=== PATIENT | female | born 1945 | race Caucasian/White ===

== ENCOUNTER 2017-04-28 09:36 | Observation (INO) | payer MEDICARE ==
[~2017-04-28] VITALS: Ht 172.7 cm; Wt 114.4 kg
[~2017-04-28 09:36] MED LIST: CLON0.5T3 PO; DIGO250T PO; GLIP5TAB10 PO; LEVO250T25 PO; METO200T3 PO; PARO20TA3 PO; SITA100T PO; WARF5TAB7 PO
[2017-04-28] MEDS ORDERED: CONTRAST GIVEN MC PRN (10:30)
[2017-04-28] MEDS ORDERED: fentaNYL PF VIAL 100 MCG/2 ML VIAL IV ONE (10:30)
[2017-04-28] MEDS ORDERED: IOHEXOL 300 MG/ML 75 ML VIAL IV ONE (10:30)
--- NOTE | 2017-04-28 10:37 | PHYS DOC ---
Past Medical History Past Medical History: A-Fib, Anxiety, Cancer, Depression, Diabetes-Type II, Hypertension Additional Past Medical Histor: Breast Ca Past Surgical History: Pacemaker Additional Past Surgical Histo: L Mastectomy Alcohol Use: None Drug Use: None Adult General Chief Complaint Chief Complaint: NAUSEA/VOMITING/DIARRHA HPI HPI Patient is a 71 year old M who presents with abdominal pain since 7 AM. Patient states she will go 7 this morning with generalized abdominal pain with nausea/vomiting/diarrhea. Patient denies any fevers. Patient denies any chest pain or shortness of breath. Patient denies any previous surgeries on the abdomen. Patient has no other complaints. Patient was unable to eat breakfast this morning. Review of Systems Review of Systems GEN: Denies fevers, chills, sweats HEENT: Denies blurred vision, sore throat CV: Denies chest pain RESP: Denies shortness of air, cough GI: n/v/d with abd pain NEURO: Denies confusion, dizziness MSK: Denies weakness, joint pain/swelling Current Medications Current Medications Current Medications Medications (Trade) Dose Ordered Sig/Cecy Start Time Stop Time Status Last Admin Dose Admin Fentanyl Citrate (Fentanyl 2ml Vial) 50 mcg 1X ONCE 04/28/17 10:30 04/28/17 10:31 DC 04/28/17 12:19 50 MCG Info (Do NOT chart on this entry -- for MONITORING) 1 each PRN DAILY PRN 04/28/17 10:30 04/30/17 10:29 Iohexol (Omnipaque 300 Mg/ml) 75 ml 1X ONCE 04/28/17 10:30 04/28/17 10:31 DC 04/28/17 12:32 75 ML Allergies Allergies Allergies Coded Allergies Type Severity Reaction Last Updated Verified codeine Allergy Intermediate 10/31/15 Yes Physical Exam Physical Exam GEN.: No apparent distress. Alert and oriented. HEENT: Head is normocephalic, atraumatic NECK: Supple. LUNGS: CTAB. HEART: RRR, S1, S2 present. Peripheral pulses intact ABDOMEN: Soft, generalized abdominal tenderness, no rebound, no focal tenderness. Positive bowel sounds. EXTREMITIES: Without any cyanosis. NEUROLOGIC: Normal speech, normal tone PSYCHIATRIC: Normal affect, normal mood. SKIN: No ulcerations Current Patient Data Vital Signs Vital Signs Date Time Temp Pulse Resp B/P (MAP) Pulse Ox O2 Delivery O2 Flow Rate FiO2 04/28/17 12:19 14 98 Room Air 04/28/17 09:36 97.7 74 191/82 (118) 97.7 Lab Values Laboratory Tests Test 04/28/17 11:59 04/28/17 15:00 White Blood Count 8.3 x10^3/uL (4.0-11.0) Red Blood Count 4.79 x10^6/uL (3.50-5.40) Hemoglobin 13.4 g/dL (12.0-15.5) Hematocrit 41.0 % (36.0-47.0) Mean Corpuscular Volume 86 fL (79-100) Mean Corpuscular Hemoglobin 28 pg (25-35) Mean Corpuscular Hemoglobin Concent 33 g/dL (31-37) Red Cell Distribution Width 14.0 % (11.5-14.5) Platelet Count 136 x10^3/uL (140-400) L Neutrophils (%) (Auto) 87 % (31-73) H Lymphocytes (%) (Auto) 9 % (24-48) L Monocytes (%) (Auto) 4 % (0-9) Eosinophils (%) (Auto) 1 % (0-3) Basophils (%) (Auto) 0 % (0-3) Neutrophils # (Auto) 7.2 x10^3uL (1.8-7.7) Lymphocytes # (Auto) 0.7 x10^3/uL (1.0-4.8) L Monocytes # (Auto) 0.3 x10^3/uL (0.0-1.1) Eosinophils # (Auto) 0.0 x10^3/uL (0.0-0.7) Basophils # (Auto) 0.0 x10^3/uL (0.0-0.2) Segmented Neutrophils % 76 % (35-66) H Band Neutrophils % 12 % (0-9) H Lymphocytes % 8 % (24-48) L Atypical Lymphocytes % (Manual) 1 % (0-0) H Monocytes % 2 % (0-10) Eosinophils % 1 % (0-5) Platelet Estimate Adequate (ADEQUATE) Sodium Level 143 mmol/L (136-145) Potassium Level 4.7 mmol/L (3.5-5.1) Chloride Level 106 mmol/L (98-107) Carbon Dioxide Level 28 mmol/L (21-32) Anion Gap 9 (6-14) Blood Urea Nitrogen 17 mg/dL (7-20) Creatinine 0.9 mg/dL (0.6-1.0) Estimated GFR (Cockcroft-Gault) 61.5 BUN/Creatinine Ratio 19 (6-20) Glucose Level 207 mg/dL (70-99) H Calcium Level 8.8 mg/dL (8.5-10.1) Total Bilirubin 0.3 mg/dL (0.2-1.0) Aspartate Amino Transferase (AST) 28 U/L (15-37) Alanine Aminotransferase (ALT) 36 U/L (14-59) Alkaline Phosphatase 78 U/L (46-116) Total Protein 7.5 g/dL (6.4-8.2) Albumin 3.5 g/dL (3.4-5.0) Albumin/Globulin Ratio 0.9 (1.0-1.7) L Lipase 297 U/L (73-393) Urine Collection Type Unknown Urine Color Yellow Urine Clarity Clear Urine pH 5.0 Urine Specific [place] >=1.030 Urine Protein Negative mg/dL (NEG-TRACE) Urine Glucose (UA) 100 mg/dL (NEG) Urine Ketones (Stick) Negative mg/dL (NEG) Urine Blood Trace (NEG) Urine Nitrite Positive (NEG) Urine Bilirubin Negative (NEG) Urine Urobilinogen Dipstick 0.2 mg/dL (0.2 mg/dL) Urine Leukocyte Esterase Moderate (NEG) Urine RBC 0 /HPF (0-2) Urine WBC 20-40 /HPF (0-4) Urine Squamous Epithelial Cells Few /LPF Urine Bacteria Moderate /HPF (0-FEW) Urine Mucus Mod /LPF Laboratory Tests 04/28/17 11:59 Laboratory Tests 04/28/17 11:59 EKG EKG [] Radiology/Procedures Radiology/Procedures CT the abdomen pelvis no acute abnormalities [] Course & Med Decision Making Course & Med Decision Making Pertinent Labs and Imaging studies reviewed. (See chart for details) ED course: Patient was seen and examined emergency room CBC, CMP, UA, CT scan abdomen pelvis, lipase were ordered 1515: Patient was reevaluated still having intractable abdominal pain and updated patient on lab work and CT findings patient would like to be admitted to the hospital 1525: Discussed CC/HP/PMH with Dr. Penaloza and recommends admit to observation [] Radha Disclaimer Dragon Disclaimer This electronic medical record was generated, in whole or in part, using a voice recognition dictation system. Departure Departure Impression: Primary Impression: Intractable abdominal pain Disposition: ADMITTED INPATIENT Admitting Physician: Other (Dr. Penaloza) Condition: STABLE Referrals: FILIPE PENALOZA MD (PCP) MARY MILLS DO Apr 28, 2017 10:37
[2017-04-28 12:08] LABS: BASO % 0 % (0-3); EOS % 1 % (0-3); HEMOGLOBIN 13.4 g/dL (12.0-15.5); LYMPH # 0.7 x10^3/uL (1.0-4.8); LYMPH % 9 % (24-48); MEAN CORPUSCULAR HEMOGLOBIN 28 pg (25-35); MEAN CORPUSCULAR HGB CONC 33 g/dL (31-37); MEAN CORPUSCULAR VOLUME 86 fL (79-100); MONO % 4 % (0-9); NEUT % 87 % (31-73); PLATELET COUNT 136 x10^3/uL (140-400); RED BLOOD COUNT 4.79 x10^6/uL (3.50-5.40); WHITE BLOOD COUNT 8.3 x10^3/uL (4.0-11.0)
[2017-04-28 12:17] LABS: CALCIUM 8.8 mg/dL (8.5-10.1); CREATININE 0.9 mg/dL (0.6-1.0); GFR 61.5; POTASSIUM 4.7 mmol/L (3.5-5.1)
[2017-04-28 12:23] LABS: ALBUMIN 3.5 g/dL (3.4-5.0); ALBUMIN/GLOBULIN RATIO 0.9 (1.0-1.7); TOTAL BILIRUBIN 0.3 mg/dL (0.2-1.0); TOTAL PROTEIN 7.5 g/dL (6.4-8.2)
--- NOTE | 2017-04-28 13:02 | RAD ---
CT scan of the abdomen and pelvis with contrast 04/28/2017 Clinical history: Abdominal pain with nausea and vomiting for one day. Technique: After the intravenous administration of 75 cc of Omnipaque 300, contiguous, 5 mm axial sections were obtained through the abdomen and pelvis. One or more of the following individualized dose reduction techniques were utilized for this study: 1. Automated exposure control. 2. Adjustment of the mA and/or kV according to patient size. 3. Use of iterative reconstruction technique. Findings: Comparison study is dated 02/21/2016. Images through the lung bases demonstrate minimal dependent subsegmental atelectasis bilaterally. There is mild cardiomegaly. The liver is mildly enlarged measuring 21 cm in length. Decreased attenuation of the liver parenchyma is seen consistent with mild fatty infiltration. The liver has a slightly nodular contour suggestive of cirrhosis. The spleen is mildly enlarged measuring 14 cm in length. The pancreas, adrenal glands and kidneys are within normal limits. Moderate atherosclerotic calcification of the abdominal aorta and its branches is noted. The abdominal aorta tapers normally. The gallbladder is well-distended. No free fluid or free air is seen within the abdomen. There is no evidence of bowel obstruction. Air and stool is seen throughout the colon. Multiple diverticula are seen along the sigmoid colon and descending colon. No inflammatory changes are seen in the adjacent fat. Images through the pelvis demonstrate the urinary bladder distended with urine. Calcifications are seen within the pelvis consistent with phleboliths. No free fluid is seen. Very mild S-shaped curvature of the thoracolumbar spine is noted. Degenerative changes are seen involving the lower thoracic and throughout the lumbar spine and both hips. Impression: No acute abnormality is seen.
[2017-04-28 14:22] LABS: % EOS 1 % (0-5); PLT ESTIMATE ADEQUATE (ADEQUATE)
[2017-04-28 15:18] LABS: BILIRUBIN,URINE NEGATIVE (NEG); GLUCOSE,URINE 100 mg/dL (NEG); NITRITE,URINE POSITIVE (NEG); PROTEIN,URINE NEGATIVE (NEG-TRACE); UROBILINOGEN,URINE 0.2 mg/dL (0.2 mg/dL)
[2017-04-28 15:22] LABS: BACTERIA,URINE MODERATE /HPF (0-FEW); RBC,URINE 0 /HPF (0-2); SQUAMOUS EPITHELIAL CELL,UR FEW /LPF; WBC,URINE 20-40 /HPF (0-4)
[2017-04-28] MEDS ORDERED: ONDANSETRON PF 4 MG/2 ML VIAL. IV PRN (15:30)
[2017-04-28] MEDS ORDERED: MORPHINE SULFATE 4 MG/ML DISP.SYRIN. IV PRN (15:30)
[2017-04-28 18:00] VITALS: BP 183/69
[2017-04-28 20:00] VITALS: BP 144/40
[2017-04-28] MEDS ORDERED: IBUPROFEN 200 MG TABLET. PO PRN (22:00)
[2017-04-28] MEDS ORDERED: clonazePAM 0.5 MG TABLET PO PRN (22:00)
--- NOTE | 2017-04-28 22:14 | HP ---
ADMIT DATE: 04/28/2017 HISTORY OF PRESENT ILLNESS: This is a 71-year-old white female who woke up this morning and had a large watery stool. She then started to throw up. She had abdominal pain. She had severe sore throat with throwing up. She threw up so many times she felt very weak. She called me around 8:00 p.m. to inform me of what was going on. I asked her to call the ambulance and go to the hospital because she had no family member to take her by private transportation. She did that. She was in the Emergency Room. She was then hospitalized. This patient has diabetes mellitus, which has been under fairly good control with oral antidiabetic agents. She also has permanent atrial fibrillation. Her ventricular response is well controlled. She has hypertension. She has been on Coumadin for the atrial fibrillation. She has no coronary artery disease. She had a cardiac catheterization a few years ago, which was normal. She does, however, have nonischemic cardiomyopathy and her ejection fraction is 40%, but she has had no congestive heart failure. SOCIAL HISTORY: She does not smoke or take alcohol. She lives with her sister. PRESENT MEDICATIONS: 1. Clonazepam 0.5 mg p.r.n. for anxiety. 2. Lanoxin 0.25 mg a day. 3. Glipizide 5 mg twice a day. 4. Metoprolol succinate 200 mg a day. 5. Paroxetine 20 mg a day. 6. Warfarin 5 mg a day. 7. Recently, she was started on Januvia 100 mg a day. PHYSICAL EXAMINATION: GENERAL: She was in no acute distress. Since coming in, she has had no abdominal pain, no diarrhea and no nausea or vomiting. She was able to keep down her dinner. VITAL SIGNS: She was afebrile. The heart rate was 60 per minute and fairly regular. The blood pressure was 140/40. LUNGS: Clear. HEART: The heart sounds are normal with no murmur or gallop. ABDOMEN: Soft. There is no tenderness. No masses are palpable. EXTREMITIES: There is no edema of the legs. LABORATORY INVESTIGATIONS: The hemoglobin was 13.4. The total WBC count was 8300 with 87% neutrophils and 9% lymphocytes. Sodium was 143, potassium 4.7, BUN was 17, creatinine was 0.9. The liver function tests were normal. Urinalysis showed moderate leukocyte esterase. There is 20-40 wbc's per high power field. Urine specific gravity was more than 1.03 consistent with her fluid loss. Urine nitrite was positive. Urine culture is awaited. CT of the abdomen was performed. There is mild cardiomegaly. There is a fatty infiltration of the liver. The pancreas, adrenal glands and kidneys are within normal limits. The bladder was distended. Because of her diabetes, one would need to consider urinary retention. IMPRESSION: 1. Probable viral gastroenteritis. 2. Urinary tract infection. 3. Doubt acute pancreatitis secondary to Januvia. 4. Permanent atrial fibrillation. Her symptoms of gastroenteritis have resolved. Await urine culture, but in the meantime, we will start her on IV antibiotics. We will also check an amylase and lipase. She will probably be discharged tomorrow. FILIPE PENALOZA MD DR: JORGE/carmina JOB#: [id number] / [id number]
[2017-04-28 23:02] VITALS: BP 147/59
--- NOTE | 2017-04-28 23:31 | ACF ---
Admission Forms Criteria ABDOMINAL PAIN Clinical Indications for Admission to Inpatient Care ( [place]/check or initial the applicable condition/criteria): Admission is indicated for ANY ONE of the following (1)(2)(3)(4)(5)(6): [ ]I. Surgery needed that cannot be performed on ambulatory basis [ ]II. Peritoneal signs present (eg, rebound tenderness, rigidity) [ ]III. Evaluation requires patient to not eat or drink for extended period ( eg, more than 24 hours). [X]IV. Inpatient admission required[B] rather than observation care (see Abdominal Pain: Observation Care guideline as appropriate) because of ANY ONE of the following(7)(8)(9): [ ] a) Hemodynamic instability [X]b) Severe pain requiring acute inpatient management [ ]c) Identification of etiology or finding that requires inpatient care (eg, aortic dissection, free air,bowel ischemia)(10) [ ]d) Absent bowel sounds with complete ileus (11) [ ]e) Signs of intestinal obstruction[C] [ ]f) Suspected toxic megacolon [ ]g) Severe electrolyte abnormalities requiring inpatient care [ ]h) High fever or infection requiring inpatient admission as indicated by ANY ONE of the following (12)(13): [ ]i) Appropriate outpatient or observation care antimicrobial treatment unavailable, not effective, or not feasible [ ]ii) Documented bacteremia [ ]iii) Temperature greater than 104.9 degrees F (40.5 degrees C) (oral) [ ]iv) Temperature greater than 103.1 degrees F (39.5 degrees C) ( oral) or less than 96.8 degrees F (36 degrees C) (rectal) that does not respond to all emergency treatment measures [ ]i) IV fluid required rather than oral rehydration to replace significant ongoing (eg, for greater than 24 hours) losses (greater than 3 L/m2 per day)(14)(15) [ ]j) Percutaneous or open drainage (eg, abscess, biliary tract) procedures [ ]k) Parenteral nutrition regimen that must be implemented on inpatient basis [ ]l) Other condition, treatment, or monitoring requiring inpatient admission Extended stay beyond goal length of stay may be needed for (1)(3)(4)(10)(16): [ ]a) Surgery (e.g., colectomy, revascularization procedure) [ ]b) Persistent abdominal pain with suspected intra-abdominal process [ ]c) Diagnosed condition requiring continued stay (e.g., pancreatitis, complicated diverticulitis) The original [facility] content created by [facility] has been revised. The portions of the content which have been revised are identified through the use of italic text, and [facility] has neither reviewed nor approved the modified material.All other unmodified content is copyright [facility]. Please see references footnoted in the original [facility] edition 2015 Admission Criteria Met?: Yes KHUSHBU GRANDE Apr 28, 2017 23:31
[2017-04-29 05:50] LABS: BASO % 0 % (0-3); EOS % 1 % (0-3); HEMATOCRIT 36.2 % (36.0-47.0); HEMOGLOBIN 12.3 g/dL (12.0-15.5); LYMPH % 19 % (24-48); MEAN CORPUSCULAR HEMOGLOBIN 29 pg (25-35); MEAN CORPUSCULAR HGB CONC 34 g/dL (31-37); MEAN CORPUSCULAR VOLUME 84 fL (79-100); MONO % 7 % (0-9); NEUT % 73 % (31-73); PLATELET COUNT 124 x10^3/uL (140-400); RED CELL DISTRIBUTION WIDTH 13.9 % (11.5-14.5); WHITE BLOOD COUNT 5.2 x10^3/uL (4.0-11.0)
[2017-04-29 05:55] LABS: INR 2.6 (0.8-1.1); PROTHROMBIN TIME PATIENT 26.5 SEC (11.7-14.0)
[2017-04-29 06:08] LABS: AMYLASE 33 U/L (25-115); ANION GAP 7 (6-14); BLOOD UREA NITROGEN 16 mg/dL (7-20); CALCIUM 8.4 mg/dL (8.5-10.1); CARBON DIOXIDE 29 mmol/L (21-32); CHLORIDE 105 mmol/L (98-107); CHOLESTEROL 133 mg/dL (0-200); CREATININE 0.9 mg/dL (0.6-1.0); GFR 61.5; GLUCOSE 159 mg/dL (70-99); HDLC 35 mg/dL (40-60); NON-HDL CHOLESTEROL 98 mg/dL (0-129); SODIUM 141 mmol/L (136-145); TRIGLYCERIDES 126 mg/dL (0-150)
[2017-04-29 06:13] LABS: CHOLESTEROL/HDL RATIO 3.8
[2017-04-29 07:00] VITALS: BP 144/55
[2017-04-29] MEDS: glipiZIDE 5 MG TABLET PO SCH ×2 (08:16→16:44)
[2017-04-29] MEDS ORDERED: PARoxetine 20 MG TABLET PO SCH (09:00)
[2017-04-29] MEDS ORDERED: METOPROLOL SUCC 24HR ER 100 MG TAB.ER.24H. PO SCH (09:00)
[2017-04-29 11:00] VITALS: BP 140/52
[2017-04-29 14:56] VITALS: BP 127/53
--- NOTE | 2017-04-29 19:56 | DS ---
DATE OF DISCHARGE: 04/29/2017 HISTORY OF PRESENT ILLNESS: This is a 71-year-old white female who came in after having a large diarrheal stool and several episodes of vomiting. She felt very poorly. She called the ambulance and came in to the Emergency Room. In the Emergency Room, the hemoglobin was 13.4. The total WBC count was 8300. Sodium 141, potassium 4, BUN 16, creatinine 0.9. She is a diabetic and her blood sugars are normal. The total cholesterol was 133, LDL cholesterol 73, HDL cholesterol 35. The triglycerides were 126. The TSH was somewhat low at 0.281. Urinalysis showed a positive nitrite. The leukocyte esterase was moderate, the wbc's were 20-40. The sensitivity is not known. She was given Rocephin 1 g on 04/28/2017 and another gram on 04/29/2017. She had no further vomiting or diarrhea. She had no abdominal pain. The serum amylase and lipase were negative. Because she was on Januvia, it was done. She was thus discharged. FINAL DIAGNOSES: 1. Viral gastroenteritis. 2. Permanent atrial fibrillation. 3. Urinary tract infection. HOMEGOING INSTRUCTIONS: 1. Activities to tolerance. 2. Diet as tolerated. 3. Metoprolol succinate 200 mg a day. 4. Paroxetine 20 mg a day. 5. Glipizide 2.5 mg a day. 6. Clonazepam 0.5 mg p.r.n. 7. UA and urine culture and sensitivity was done. We await the sensitivity report. Depending on that, she will be given oral antibiotics. FILIPE PENALOZA MD DR: JORGE/carmina JOB#: [id number] / [id number]
== END 2017-04-29 20:31 | disposition home or self-care (01) ==
LOC: ER 09:36 → 5 NORTH 15:14
PROVIDERS: ADMIT Specialist; ATTEND Specialist
DX: A08.4 Viral intestinal infection, unspecified (principal); I48.2 Chronic atrial fibrillation; E11.9 Type 2 diabetes mellitus without complications; I10 Essential (primary) hypertension; I42.9 Cardiomyopathy, unspecified; F41.9 Anxiety disorder, unspecified; F32.9 Major depressive disorder, single episode, unspecified; N39.0 Urinary tract infection, site not specified; Z96.89 Presence of other specified functional implants; Z79.01 Long term (current) use of anticoagulants; Z79.899 Other long term (current) drug therapy; Z85.3 Personal history of malignant neoplasm of breast; Z79.84 Long term (current) use of oral hypoglycemic drugs
CPT/HCPCS: 36415; 74177; 80048; 80053; 80061; 80162; 81001; 82150; 82962; 83036; 83690; 84443; 85007; 85025; 85610; 87086; 96365; 96375; 99285; G0378; J0696; J3010; Q9967; G0379

== ENCOUNTER → 2017-08-14 | Outpatient (CLI) | payer MEDICARE ==
[~2017-08-14] MED LIST changes: -METO200T3 PO; +METO200T5 PO
--- NOTE | 2017-08-14 13:07 | RAD ---
DATE: August 14, 2017 EXAM: DIGITAL SCREEN RT W/CAD HISTORY: Routine screening. COMPARISON: Prior studies going back to August 01, 2014. TECHNIQUE: CC and MLO views of the right wrist are provided. This study was interpreted with the benefit of Computerized Aided Detection (CAD). FINDINGS: The breast parenchyma is heterogeneously dense, category C, which may obscure small masses. Within the outer right breast 9 cm from the nipple there is a 10 mm oval-shaped asymmetry with only the lateral margin of this suspected lesion visible. There is no definite correlate on the MLO view and the finding does appear to be a change from priors. There are benign-appearing calcifications. There are no suspicious groupings of microcalcifications IMPRESSION: Asymmetry on right CC view only for which compression CC view and ML view would be recommended. If the finding persists, rolled views and/or ultrasound may be required. BI-RADS CATEGORY: 0 INCOMPLETE: NEEDS ADDITIONAL IMAGING EVALUATION/COMPARISON WITH PRIOR STUDIES RECOMMENDED FOLLOW-UP: ADD ADDITIONAL IMAGING PQRS compliance statement: Patient information was entered into a reminder system with a target due date for the next mammogram. Mammography is a sensitive method for finding small breast cancers, but it does not detect them all and is not a substitute for careful clinical examination. A negative mammogram does not negate a clinically suspicious finding and should not result in delay in biopsying a clinically suspicious abnormality. "Our facility is accredited by the [employer] Mammography Program."
== END | disposition home or self-care (01) ==
LOC: MAMMO 09:18
PROVIDERS: ATTEND Internal Medicine Hematology & Oncology
DX: Z12.31 Encounter for screening mammogram for malignant neoplasm of breast (principal); Z90.12 Acquired absence of left breast and nipple; Z85.3 Personal history of malignant neoplasm of breast
CPT/HCPCS: G0202; 77067

== ENCOUNTER → 2017-08-21 | Outpatient (CLI) | payer MEDICARE ==
--- NOTE | 2017-08-21 13:35 | RAD ---
DATE: 08/21/2017. EXAM: DIGITAL DIAGNOSTIC RT HISTORY: Right breast density. Patient presents for additional views. COMPARISON: 08/14/2017 This study was interpreted with the benefit of Computerized Aided Detection (CAD ). FINDINGS: Spot compression CC as well as rolled CC views of the right breast were obtained. A 90 degree lateral view was also obtained. Additional views show vague residual increased density in the outer portion of the right breast, only seen on the CC view. No correlate on the MLO view is seen. There are benign calcifications present. Impression: Mild residual density in the outer right breast. Further evaluation with ultrasound is recommended. Right breast ultrasound: Sonographic interrogation of the upper outer right breast was performed. There is an ill-defined region of hypoechogenicity noted at the 10:00 location of the right breast 4 cm from the nipple. This area measures 2.0 x 1.4 x 0.7 cm. There is questionable mild shadowing present. This may account for the mammographic density. No other abnormalities are seen. Breast Density: DENSE The breast parenchyma is dense, which could reduce the sensitivity of mammography. Breast parenchyma level density D. IMPRESSION: Heterogeneous, ill-defined hypoechogenicity at the 10:00 location of the right breast, 4 cm from the nipple. Mass cannot be entirely excluded. Tissue sampling is recommended. This would be amenable to ultrasound-guided biopsy. BI-RADS CATEGORY: 4 SUSPICIOUS ABNORMALITY- BIOPSY SHOULD BE CONSIDERED RECOMMENDED FOLLOW-UP: BIO BIOPSY RECOMMENDED PQRS compliance statement: Patient information was entered into a reminder system with a target due date for the next mammogram. Mammography is a sensitive method for finding small breast cancers, but it does not detect them all and is not a substitute for careful clinical examination. A negative mammogram does not negate a clinically suspicious finding and should not result in delay in biopsying a clinically suspicious abnormality. "Our facility is accredited by the [employer] Mammography Program." MTDD
== END | disposition home or self-care (01) ==
LOC: MAMMO 10:17
PROVIDERS: ATTEND Internal Medicine Hematology & Oncology
DX: C50.911 Malignant neoplasm of unspecified site of right female breast (principal)
CPT/HCPCS: 76641; G0206; 77065

== ENCOUNTER → 2017-09-02 | Outpatient (CLI) | payer MEDICARE ==
[~2017-09-02] MED LIST changes: -CLON0.5T3 PO; -DIGO250T PO; -GLIP5TAB10 PO; -LEVO250T25 PO; +LIDOCAINE 1%/EPI 1:100,000 20 ML VIAL. INJ; +LIDOCAINE 2%/EPI 1:100,000 20 ML VIAL. IJ; -METO200T5 PO; -PARO20TA3 PO; -SITA100T PO; -WARF5TAB7 PO
== END | disposition home or self-care (01) ==
LOC: US 13:33
DX: N63.10 Unspecified lump in the right breast, unspecified quadrant (principal)
CPT/HCPCS: 19085; 76641; 76942

== ENCOUNTER → 2018-03-01 | Outpatient (CLI) | payer MEDICARE | END | disposition home or self-care (01) | LOC: MAMMO 10:28 | DX: C50.912 Malignant neoplasm of unspecified site of left female breast (principal); I10 Essential (primary) hypertension; E11.9 Type 2 diabetes mellitus without complications; Z17.0 Estrogen receptor positive status [ER+] | CPT/HCPCS: 76641; 77065; G0279 ==

== ENCOUNTER → 2018-03-17 | Outpatient (CLI) | payer MEDICARE ==
[~2018-03-17] MED LIST changes: +LIDOCAINE 1% Multi-Dose 50 ML VIAL. INJ; -LIDOCAINE 1%/EPI 1:100,000 20 ML VIAL. INJ; -LIDOCAINE 2%/EPI 1:100,000 20 ML VIAL. IJ
== END | disposition home or self-care (01) ==
LOC: US 13:31
DX: C50.911 Malignant neoplasm of unspecified site of right female breast (principal); E11.9 Type 2 diabetes mellitus without complications; I48.91 Unspecified atrial fibrillation; G47.30 Sleep apnea, unspecified; E66.9 Obesity, unspecified; M19.90 Unspecified osteoarthritis, unspecified site; F17.210 Nicotine dependence, cigarettes, uncomplicated; F41.8 Other specified anxiety disorders; Z17.0 Estrogen receptor positive status [ER+]; Z79.01 Long term (current) use of anticoagulants; Z79.899 Other long term (current) drug therapy; Z87.891 Personal history of nicotine dependence; Z98.42 Cataract extraction status, left eye; Z98.41 Cataract extraction status, right eye; Z95.0 Presence of cardiac pacemaker; Z83.3 Family history of diabetes mellitus; Z82.49 Family history of ischemic heart disease and other diseases of the circulatory system; Z79.84 Long term (current) use of oral hypoglycemic drugs
CPT/HCPCS: 19081; 19083; 76942; 77065; 88305; 88361; C1713

== ENCOUNTER → 2018-04-07 | Outpatient (CLI) | payer MEDICARE ==
[2018-04-07 15:26] LABS: ADD MAN DIFF? NO
[2018-04-07 15:31] LABS: BASO % 1 % (0-3); EOS # 0.1 x10^3/uL (0.0-0.7); EOS % 1 % (0-3); HEMATOCRIT 39.2 % (36.0-47.0); HEMOGLOBIN 13.2 g/dL (12.0-15.5); LYMPH # 1.9 x10^3/uL (1.0-4.8); LYMPH % 43 % (24-48); MEAN CORPUSCULAR HEMOGLOBIN 29 pg (25-35); MEAN CORPUSCULAR HGB CONC 34 g/dL (31-37); MEAN CORPUSCULAR VOLUME 85 fL (79-100); MONO # 0.3 x10^3/uL (0.0-1.1); MONO % 7 % (0-9); NEUT # 2.1 x10^3uL (1.8-7.7); NEUT % 48 % (31-73); PLATELET COUNT 148 x10^3/uL (140-400); RED CELL DISTRIBUTION WIDTH 14.2 % (11.5-14.5); WHITE BLOOD COUNT 4.4 x10^3/uL (4.0-11.0)
[2018-04-07 15:41] LABS: INR 1.8 (0.8-1.1); PARTIAL THROMBOPLASTIN TIME 33 SEC (24-38); PROTHROMBIN TIME PATIENT 20.6 SEC (11.7-14.0)
[2018-04-07 15:55] LABS: ANION GAP 9 (6-14); BLOOD UREA NITROGEN 18 mg/dL (7-20); CALCIUM 9.2 mg/dL (8.5-10.1); CARBON DIOXIDE 24 mmol/L (21-32); CHLORIDE 103 mmol/L (98-107); CREATININE 0.8 mg/dL (0.6-1.0); GFR 70.3; GLUCOSE 189 mg/dL (70-99); POTASSIUM 4.5 mmol/L (3.5-5.1); SODIUM 136 mmol/L (136-145)
== END | disposition home or self-care (01) ==
LOC: SURGPAT 13:25
DX: I11.9 Hypertensive heart disease without heart failure (principal); I45.10 Unspecified right bundle-branch block; E11.9 Type 2 diabetes mellitus without complications; Z87.891 Personal history of nicotine dependence; Z79.01 Long term (current) use of anticoagulants
CPT/HCPCS: 36415; 80048; 85025; 85610; 85730; 93005

== ENCOUNTER → 2018-05-13 | Outpatient (CLI) | payer MEDICARE ==
[2018-04-15 15:00] VITALS: BP 155/63
[~2018-05-13] MED LIST changes: +CLON0.5T11 PO; +CLON2TAB9 PO; +DIGO250T PO; +FURO40TA4 PO; +GLIP5TAB10 PO; +LEVO250T25 PO; -LIDOCAINE 1% Multi-Dose 50 ML VIAL. INJ; +METO200T46 PO; +PARO20TA3 PO; +SITA100T PO; +WARF-31 PO
--- NOTE | 2018-05-13 16:26 | RAD ---
Radionuclide bone scan, 05/13/2018: HISTORY: Breast cancer, bone pain Whole-body imaging was performed following IV injection of 26 mCi of technetium 99m MDP. Comparison is made to a study from 02/22/2016. The following findings are delineated: 1. Mildly increased activity at the feet, hands, wrists and shoulders is compatible with arthritis. 2. Activity of the radionuclide about the skeleton and major joints is symmetric. No additional areas of abnormal bony activity are seen. 3. Tiny foci of increased activity projected over the left midpelvis on the posterior view is probably due to urine contamination. 4. Normal activity is present in both kidneys and the bladder. IMPRESSION: 1. Scattered arthritic changes. 2. No bone scan findings to suggest osseous metastatic disease. Electronically signed by: Mak Justice MD (05/13/2018 4:22 PM) [facility]
== END | disposition home or self-care (01) ==
LOC: NM 16:19
PROVIDERS: ATTEND Internal Medicine Hematology & Oncology
DX: C50.411 Malignant neoplasm of upper-outer quadrant of right female breast (principal); M13.89 Other specified arthritis, multiple sites; Z87.891 Personal history of nicotine dependence; Z88.8 Allergy status to other drugs, medicaments and biological substances; Z79.899 Other long term (current) drug therapy
CPT/HCPCS: 78306; 96374; A9503

== ENCOUNTER → 2018-06-01 | Outpatient (CLI) | payer MEDICARE ==
[2018-04-15 15:00] VITALS: BP 155/63
--- NOTE | 2018-06-01 14:35 | KCIC ---
EXAM: Dual energy x-ray absorptiometry (DEXA). HISTORY: Postmenopausal female presents for osteoporosis screening. COMPARISON: None. TECHNIQUE: Dual energy x-ray absorptiometry of the lumbar spine and left hip was performed. Calculation of bone mineral density based on standard deviations above or below the expected young adult normal value (T-score) was completed. FINDINGS: The average bone mineral density in the 1st through 4th lumbar vertebrae is 1.263 g/cmxcm, corresponding with a T-score of 2.0. The average total bone mineral density in the left hip is 1.266 g/cmxcm, corresponding with a T-score of 2.7. IMPRESSION: Normal bone mineral density. Note: Definitions established by the World Health Organization: 1. Normal: T-score is -1.0 or above. 2. Osteopenia: T-score is between -1.0 and -2.5 . 3. Osteoporosis: T-score is -2.5 or below. Electronically signed by: Keri Moffett MD (06/01/2018 2:31 PM) [place] [id number]
== END | disposition home or self-care (01) ==
LOC: KCIC DEXA 09:19
PROVIDERS: ATTEND Internal Medicine Hematology & Oncology
DX: Z13.820 Encounter for screening for osteoporosis (principal); I10 Essential (primary) hypertension; E11.9 Type 2 diabetes mellitus without complications; Z78.0 Asymptomatic menopausal state; Z85.3 Personal history of malignant neoplasm of breast; Z87.891 Personal history of nicotine dependence; Z95.0 Presence of cardiac pacemaker; Z79.4 Long term (current) use of insulin; Z88.5 Allergy status to narcotic agent; Z88.6 Allergy status to analgesic agent; Z88.8 Allergy status to other drugs, medicaments and biological substances; Z82.49 Family history of ischemic heart disease and other diseases of the circulatory system; Z83.3 Family history of diabetes mellitus
CPT/HCPCS: 77080

== ENCOUNTER → 2019-05-27 | Outpatient (CLI) | payer MEDICARE ==
[2018-04-15 15:00] VITALS: BP 155/63
[~2019-05-27] MED LIST changes: +CLON-77 PO; -CLON0.5T11 PO
--- NOTE | 2019-05-27 14:28 | RAD ---
EXAM: Pelvic sonogram. HISTORY: Pain. TECHNIQUE: Transabdominal and transvaginal sonographic imaging of the pelvis was performed. COMPARISON: None. FINDINGS: The uterus it is retroverted and measures 7.8 x 5.7 x 5.0 cm. The endometrial stripe is heterogeneous and thickened, measuring 2.2 cm. The ovaries are not seen. There is no pelvic free fluid. IMPRESSION: 1. Heterogeneous thickened endometrium. Given the postmenopausal status of patient, endometrial biopsy can be performed for definitive diagnosis. 2. Nonvisualization of the ovaries. Electronically signed by: Keri Moffett MD (05/27/2019 2:26 PM) [place] [id number]
== END | disposition home or self-care (01) ==
LOC: US 13:03
PROVIDERS: ATTEND Internal Medicine Hematology & Oncology
DX: C50.411 Malignant neoplasm of upper-outer quadrant of right female breast (principal); N95.9 Unspecified menopausal and perimenopausal disorder
CPT/HCPCS: 76830; 76856